=== PATIENT | male | born 1975 | race Hispanic/Latino ===

== ENCOUNTER 2017-09-06 14:26 | Emergency (ER) | payer BC, OTHER ==
[2017-09-06] MEDS ORDERED: IBUPROFEN 600 MG TABLET ONE (15:26)
[2017-09-06] MEDS ORDERED: CYCLOBENZAPRINE HCL 10 MG TABLET ONE (15:27)
== END 2017-09-06 16:20 | disposition home or self-care (01) ==
LOC: EDH 14:26
DX: S30.0XXA Contusion of lower back and pelvis, initial encounter (principal); V49.49XA Driver injured in collision with other motor vehicles in traffic accident, initial encounter; Y93.89 Activity, other specified; Y92.89 Other specified places as the place of occurrence of the external cause; Y99.8 Other external cause status
CPT/HCPCS: 72100; 73030; 73562

== ENCOUNTER 2017-12-10 20:15 | Emergency (ER) | payer BC, OTHER ==
[2017-12-10 20:43] LABS: BASOPHILS % (AUTO) 0.1 % (0.0-5.0); HEMATOCRIT 48.6 % (42-54); LYMPHOCYTES % (AUTO) 5.5 % (21.0-51.0); MEAN CORPUSCULAR HEMOGLOBIN 31.1 pg (27.0-33.0); MEAN CORPUSCULAR HGB CONC 34.9 g/dL (32.0-36.0); MEAN CORPUSCULAR VOLUME 89.1 fL (79-99); MONOCYTES % (AUTO) 4.3 % (3.0-13.0); NEUTROPHILS % (AUTO) 89.1 % (40.0-77.0); PLATELET COUNT (AUTO) 254 K/uL (130-400); RED BLOOD CELL COUNT(AUTO) 5.46 MIL/uL (4.50-6.20); WHITE BLOOD COUNT (AUTO) 9.8 K/uL (4.8-10.8)
[2017-12-10 20:54] LABS: APPEARANCE,URINE Clear (CLEAR); BILIRUBIN,URINE Negative (NEGATIVE); COLOR,URINE Yellow (YELLOW); GLUCOSE, URINE (UA) Negative (NEGATIVE); KETONES,URINE Negative (NEGATIVE); LEUKOCYTE ESTERASE ,URINE Negative (NEGATIVE); NITRATE,URINE Negative (NEGATIVE); OCCULT BLOOD,URINE Negative (NEGATIVE); PROTEIN,URINE Negative (NEGATIVE); UROBILINOGEN,URINE 0.2 mg/dL (0.2-1.0)
[2017-12-10] MEDS ORDERED: ONDANSETRON HCL 4 MG/2 ML VIAL ONE (21:09)
[2017-12-10] MEDS ORDERED: SODIUM CHLORIDE 0.9% 1000ML 1,000 ML IV ONE (21:09)
[2017-12-10] MEDS ORDERED: MORPHINE SULFATE 4 MG/1ML SYG ONE (21:10)
[2017-12-10 21:16] LABS: CREATININE 0.9 mg/dL (0.5-1.5); POTASSIUM 4.1 mmol/L (3.5-5.1)
[2017-12-10 21:20] LABS: ALBUMIN 4.2 g/dL (3.5-5.0); BILIRUBIN,TOTAL 0.8 mg/dL (0.2-1.0); TOTAL PROTEIN, SERUM 7.5 g/dL (6.0-8.3)
[2017-12-10] MEDS ORDERED: IOHEXOL-350 75 ML VIAL IV ONE (22:25)
[2017-12-10] MEDS ORDERED: FAMOTIDINE 20MG TAB 20 MG TAB ONE (23:49)
== END 2017-12-11 00:11 | disposition home or self-care (01) ==
LOC: EDH 20:15
DX: K29.70 Gastritis, unspecified, without bleeding (principal)
CPT/HCPCS: 36415; 71045; 74177; 76705; 80053; 81003; 82550; 83690; 84484; 85025; 93005; 96374; 96375; 99285; J2270; J2405; J7030; Q9967